=== PATIENT | male | born 1975 | race Caucasian/White ===

== ENCOUNTER → 2018-10-24 | Outpatient (CLI) | payer OTHER ==
--- NOTE | 2018-10-24 11:35 | PCVCIMAG ---
APPROVED REPORT Study performed: 10/24/2018 08:22:15 EXAM: Comprehensive 2D, Doppler, and color-flow Echocardiogram Patient Location: Echo lab Status: routine BSA: 1.75 HR: 83 bpm Rhythm: NSR Other Information Study Quality: Adequate Indications Dyspnea Chest Pain 2D Dimensions IVSd: 9.13 (7-11mm)LVOT Diam: 20.00 (18-24mm) LVDd: 46.52 mm PWd: 9.36 (7-11mm)Ascending Ao: 27.44 (22-36mm) LVDs: 29.72 (25-40mm) Left Atrium: 37.93 (27-40mm) Aortic Root: 27.28 mm LV Single Plane 4CH: 59.39 % LV Single Plane 2CH: 61.79 % Biplane EF: 62.7 % Volumes Left Atrial Volume (Systole) Single Plane 4CH: 44.02 mLSingle Plane 2CH: 30.29 mL LA ESV Index: 22.00 mL/m2 Aortic Valve AoV Peak Gama.: 1.29 m/s AO Peak Gr.: 6.70 mmHgLVOT Max P.96 mmHg LVOT Max V: 1.00 m/s EDGAR Vmax: 2.44 cm2 Mitral Valve E/A Ratio: 1.4 MV Decel. Time: 195.16 ms MV E Max Gama.: 0.72 m/s MV A Gama.: 0.50 m/s IVRT: 83.04 ms TDI E/Lateral E': 7.20E/Medial E': 9.00 Medial E' Gama.: 0.08 m/s Lateral E' Gama.: 0.10 m/s Pulmonary Valve PV Peak Gama.: 1.37 m/sPV Peak Gr.: 7.52 mmHg UT End Vmax: 1.04 m/s Pulmonary Vein P Vein S: 0.50 m/sP Vein A: 0.32 m/s P Vein D: 0.39 m/sP Vein A Dur.: 90.0 msec P Vein S/D Ratio: 1.28 Tricuspid Valve TR Peak Gama.: 2.21 m/sRAP Estimate: 7.00 mmHg TR Peak Gr.: 19.47 mmHg PA Pressure: 26.00 mmHg Left Ventricle The left ventricle is normal size. There is normal LV segmental wall motion. There is normal left ventricular wall thickness. Left ventricular systolic function is normal. The left ventricular ejection fraction is within the normal range. LVEF is 60-65%. Moderate diastolic dysfunction is present (pseudonormal filling). Right Ventricle The right ventricle is normal size. The right ventricular systolic function is normal. Atria The left atrium size is normal. The right atrium size is normal. Aortic Valve The aortic valve is normal in structure. No aortic regurgitation is present. There is no aortic valvular stenosis. Mitral Valve Mitral valve leaflets appear myxomatous. Moderate mitral regurgitation. No evidence of mitral valve stenosis. Mild to moderate prolapse of the anterior mitral valve leaflet. Tricuspid Valve The tricuspid valve is normal in structure. Mild tricuspid regurgitation. Pulmonary artery pressure is 26 mmHg. Pulmonic Valve The pulmonary valve is normal in structure. Mild pulmonic regurgitation. Great Vessels The aortic root is normal in size. IVC is normal in size and collapses >50% with inspiration. Pericardium There is no pericardial effusion. <Conclusion> The left ventricle is normal size. LVEF is 60-65%. The aortic valve is normal in structure. Mitral valve leaflets appear myxomatous. Moderate mitral regurgitation. Mild to moderate prolapse of the anterior mitral valve leaflet. The tricuspid valve is normal in structure. Mild tricuspid regurgitation. Pulmonary artery pressure is 26 mmHg. The pulmonary valve is normal in structure. Mild pulmonic regurgitation. There is no pericardial effusion.
--- NOTE | 2018-10-24 12:00 | PCVCIMAG ---
APPROVED REPORT Imaging Protocol: Rest Tc-99m/Stress Tc-99m 1 day Study performed: 10/24/2018 09:03:04 Indication: Chest pain, Dyspnea Patient Location: Out-Patient Stress Nurse: Erika Khanna RN, Johana Vides RN GA Tech:Bessie Chang [facility] Ht: 5 ft 5 in Wt: 150 lbs BSA: 1.75 m2 HR: 78 bpm BP: 143/90 mmHg BMI: 24.95 Rhythm: Normal Sinus Rhythm, Inferior Q waves Medical History Medical History: Hyperlipidemia, Former Smoker Medications: None Allergies: No known drug allergies Pretest Chest Pain Characteristics: No chest pain Exercise History: Physically active Resting Data Rest SPECT myocardial perfusion imaging was performed in supine position 45 minutes following the intravenous injection of 10.7 mCi of Tc-99m Sestamibi. Time of rest injection: 0900 Date: 10/24/2018 Administration Route: IV Administration Site: Right AC Exercise Stress At peak stress, the patient was injected intravenously with 34.3mCi of Tc-99m Sestamibi. Time of stress injection: 1015 Date: 10/24/2018 Administration Route: IV Administration Site: Right AC Patient continued to exercise for 1 minute(s). Gated Stress SPECT was performed 30 minutes after stress injection. The images were gated to evaluate regional wall motion and calculate left ventricular ejection fraction. Stress Test Details Stress Test: Exercise stress testing was performed using a Hussein protocol. HRMax Heart Rate (APMHR): 178 bpm Resting HR: 78 bpmTarget HR (85% APMHR): 151 bpm Max HR Achieved: 146 bpm % of APMHR: 82 Recovery HR: 82 bpm HR response to stress: Normal HR response to stress BP Resting BP: 143/90 mmHg Max BP: 174/88 mmHg Recovery BP: 137/83 mmHg ECG Resting ECG: Normal Sinus Rhythm, Inferior Q waves Stress ECG: Sinus Tachycardia, nonspecific ST-T abnormalities ST Change: Downsloping ST depression Maximum ST Deviation: 2 mm Arrhythmia: PVC's Recovery ECG: Sinus Rhythm, nonspecific ST-T abnormalities, Abnormal Clinical Reason for Termination: Chest pain/Anginal equivalent Stress Symptoms: Chest pain radiating to throat, Dyspnea, Numbness tingling in arms Exercise duration: 8 min 02 sec Exercise capacity: 10.10 METs Overall Exercise Capacity for Age: Average Scale: Active Angina Score: Exercise-Limiting Symptoms resolved during recovery. Nurse Comments Injected radioisotope at 80% target due to chest pain,. Stress ECG Conclusion 1. subjectively positive for ischemia with reproduction of typical chest pain 2. electrocardiographically suggestive but did not fulfill criteria for ischemia 3. average functional capacity Kidd Treadmill Score is -10.0 which is Moderate risk. Study Data Post stress, the left ventricular ejection was 63%.. SSS: 12 SRS: 0 SDS: 12 TID = 1.13. Perfusion There is a large area of severely reduced uptake in the mid and apical segment of the anterior wall which is seen on the stress images and normalizes on the resting images. This area thickens and moves normally and is most consistent with ischemia. Nuclear Conclusion ECG Findings: equivocal Clinical Findings: positive for ischemia Nuclear Findings: positive for ischemia Exercise Capacity: normal Left Ventricular Function: normal 1. high risk study based on a large region of inducible ischemia involving anterior and apical wall 2. post stress lvef 63% without wall motion changes <Conclusion> 1. subjectively positive for ischemia with reproduction of typical chest pain 2. electrocardiographically suggestive but did not fulfill criteria for ischemia 3. average functional capacity
== END | disposition home or self-care (01) ==
LOC: EDSEX 07:55 → PCVCCLINIC 07:55
PROVIDERS: ATTEND Internal Medicine
DX: I08.8 Other rheumatic multiple valve diseases (principal); R07.9 Chest pain, unspecified; R06.09 Other forms of dyspnea; Z87.891 Personal history of nicotine dependence
CPT/HCPCS: 78452; 93017; 93306; A9500